=== PATIENT | female | born 1980 | race Hispanic/Latino ===

== ENCOUNTER 2018-05-25 13:39 | Emergency (ER) | payer BC ==
[~2018-05-25] VITALS: Ht 162.6 cm; Wt 59.0 kg
--- OUTSIDE RECORDS SUMMARY | 2018-05-25 13:42 | XMS REPORT | Encounter Summary ---
Author Organization Unknown Address [address] [place] [address] Phone [phone] Reason for Visit Medical Complaint Instructions 1. Cystitis urinalysis, dipstick urinary tract infection in women: care instructions Macrobid 100 mg capsule culture, urine 2. Dysuria painful urination (dysuria): care instructions Pyridium 200 mg tablet 3. Bilirubin in urine - finding Discussion Note Take your antibiotics as directed. Do not stop taking them just because you feel better. You need to take the full course of antibiotics. Drink extra water and other fluids for the next day or two. This may help wash out the bacteria that are causing the infection. (If you have kidney, heart, or liver disease and have to limit fluids, talk with your doctor before you increase your fluid intake.) Avoid drinks that are carbonated or have caffeine. They can irritate the bladder. Urinate often. Try to empty your bladder each time. To relieve pain, take a hot bath or lay a heating pad set on low over your lower belly or genital area. Never go to sleep with a heating pad in place. F/U with PCP Plan of Care Reminders Provider Appointments None recorded. Lab Urinalysis, Dipstick 12/21/2017 [facility] Culture, Urine 12/21/2017 [facility] Referral None recorded. Procedures None recorded. Surgeries None recorded. Imaging None recorded. Medications Name Start Date Lyrica 100 mg capsule Macrobid 100 mg capsule Take 1 capsule every 12 hours by oral route as directed for 7 days. methocarbamol 750 mg tablet naproxen 500 mg tablet Pyridium 200 mg tablet Take 1 tablet 3 times a day by oral route as needed for 2 days. zolmitriptan 5 mg tablet Medications Administered None recorded. Vitals Height Weight BMI Blood Pressure 5 ft 4 in 134 lbs 23 kg/m2 100/68 mm[Hg] Lab Results None recorded. Allergies Code Code System Name Reaction Severity Status Onset NKDA Problems No Known Problems Procedures Date Name Performed by Tubal Ligation Information not available Information not available Breast Augmentation Information not available Vaccine List Vaccine Type influenza, injectable, quadrivalent 03/04/2017 influenza, seasonal, injectable, preservative free 02/18/2013 influenza, unspecified formulation 02/19/2016 Tdap 05/21/2010 Social History Smoking Status Never Smoker Past Encounters 12/21/2017 Cystitis; Dysuria; Bilirubin in Urine - Finding Damaris Wolf PA-C: [address] [place] [address], Ph. History of Present Illness [id number] Reported By: Patient HPI: Location: urethra. Quality: burning. Severity: worsening, moderate. Duration: started today. Onset/Timing: worse, sudden. Context: no known exposure to STD, no prior history of STDs, sexually active. Associated Symptoms: no fever/chills, no flank pain, no jaundice, no pain during urination, no vaginal discharge, no urgency, no blisters on genitals, no rash on genitals, no muscle aches, no headache; burning Review of Systems:ROS as noted in the HPI Review of Systems Basic Reported By: Patient Constitutional: Constitutional: no fever Eyes: Eyes: no eye complaints Yvqj-Amjp-Lputx-Throat: Ears: no ear complaints. Nose: no nose/sinus problems. Mouth/Throat: no sore throat, no bleeding gums, no mouth complaints, no teeth problems Cardiovascular: Cardiovascular: no chest pain, no shortness of breath, no known heart murmur Respiratory: Respiratory: no cough, no wheezing, no shortness of breath Gastrointestinal: Gastrointestinal: no abdominal pain, no vomiting / diarrhea Genitourinary: Genitourinary: no discharge, dysuria, urinary urgency Musculoskeletal: Musculoskeletal: no muscle aches, no muscle weakness, no arthralgias/joint pain, back pain Skin: Skin: no abnormal / changing mole, no jaundice, no rashes Neurologic: Neurologic: no loss of consciousness, no weakness, no numbness, no seizures, no dizziness, no headaches Physical Exam Adult Basic, Adult Female Complete Reported By: Patient Constitutional: General Appearance: healthy-appearing, well-nourished, well-developed. Level of Distress: NAD. Ambulation: ambulating normally Psychiatric: Mental Status: active and alert. Orientation: to time, to place, to person Lungs: Respiratory effort: no dyspnea, no tachypnea, no use of accessory muscles, no intercostal retractions. Auscultation: breath sounds normal Cardiovascular: Heart Auscultation: RRR, no murmurs Abdomen: Bowel Sounds: normal. Inspection and Palpation: soft, non-distended, no guarding, no rebound tenderness, no masses, no CVA tenderness, suprapubic tenderness. Liver: non-tender, no hepatomegaly. Spleen: non-tender, no splenomegaly
--- OUTSIDE RECORDS SUMMARY | 2018-05-25 13:42 | XMS REPORT ---
Author Author [facility] Address Unknown Phone Unavailable Care Team Providers Care Incubator Tender Name Role Phone WILLIAM LOTT Unavailable Unavailable Problems This patient has no known problems. Allergies, Adverse Reactions, Alerts This patient has no known allergies or adverse reactions. Medications This patient has no known medications. Encounters Start Date/Time End Date/Time Encounter Type Admission Type Attending [facility] Care Department Encounter ID 2018-04-15 00:00:00 2018-04-15 00:00:00 [facility]patient [facility] [id number] 2017-07-13 11:00:00 2018-01-27 23:59:00 Outpatient WILLIAM IBANEZ [facility] PT [id number]
--- OUTSIDE RECORDS SUMMARY | 2018-05-25 13:42 | XMS REPORT | Continuity of Care Document ---
Author Author [facility] Address Unknown Phone Unavailable Problems Problem Status Onset Date Classification Date Reported Comments Source Cough 04/30/2018 Diagnosis 04/30/2018 [facility] Sore throat symptom 04/30/2018 Diagnosis 04/30/2018 [facility] Blood in urine 12/21/2017 Diagnosis 12/21/2017 [facility] Proteinuria 12/21/2017 Diagnosis 12/21/2017 [facility] Bilirubin in urine - finding 12/21/2017 Diagnosis 12/21/2017 [facility] Dysuria 12/21/2017 Diagnosis 12/21/2017 [facility] Cystitis 12/21/2017 Diagnosis 12/21/2017 [facility] Allergic rhinitis 08/30/2017 Diagnosis 08/30/2017 [facility] Myofascial pain 07/02/2017 Diagnosis 08/30/2017 [facility] Dysfunction of eustachian tube 07/02/2017 Diagnosis 08/30/2017 [facility] Acute otitis media 07/02/2017 Diagnosis 08/30/2017 [facility] Strain of neck muscle 06/29/2017 Diagnosis 08/30/2017 [facility] Impetigo 04/03/2017 Diagnosis 08/30/2017 [facility] Muscle spasm of cervical muscle of neck 03/19/2017 Diagnosis 08/30/2017 [facility] Body mass index 20-24 - normal 03/19/2017 Diagnosis 08/30/2017 [facility] Neck pain 12/28/2016 Diagnosis 08/30/2017 [facility] Abdominal pain 11/06/2016 Diagnosis 08/30/2017 [facility] Migraine 10/23/2016 Problem 08/30/2017 [facility] Acute tonsillitis 08/25/2016 Diagnosis 08/25/2016 [facility] Ear pressure sensation 08/25/2016 Diagnosis 08/25/2016 [facility] Acute urinary tract infection 02/25/2016 Diagnosis 02/25/2016 [facility] Acute Sinusitis Problem 08/25/2016 [facility] Allergic Rhinitis Problem 08/25/2016 [facility] Acute Urinary Tract Infection Problem 08/25/2016 [facility] Medications Medication Details Route Status Patient Instructions Ordering Provider Order Date Source Amoxicillin 875 MG Oral Tablet amoxicillin 875 mg tablet Active 08/30/2017 [facility] Fluticasone propionate 0.05 MG/ACTUAT Metered Dose Nasal [place] fluticasone 50 mcg/actuation nasal spray,suspension Active 08/30/2017 [facility] 2 ML Ketorolac Tromethamine 30 MG/ML Injection ketorolac 60 mg/2 mL intramuscular solution Inject 2 mL as needed by intramuscular route. Active 08/30/2017 [facility] Lidocaine Hydrochloride 20 MG/ML Mucous Membrane Topical Solution Lidocaine Viscous 2 % mucosal solution Active 08/30/2017 [facility] pregabalin 100 MG Oral Capsule [Lyrica] Lyrica 100 mg capsule Active 08/30/2017 [facility] Methocarbamol 750 MG Oral Tablet methocarbamol 750 mg tablet Active 08/30/2017 [facility] Naproxen 500 MG Oral Tablet naproxen 500 mg tablet Active 08/30/2017 [facility] Oseltamivir 75 MG Oral Capsule oseltamivir 75 mg capsule Active 08/30/2017 [facility] Cephalexin 500 MG Oral Capsule cephalexin 500 mg capsule Active 07/02/2017 [facility] Ibuprofen 800 MG Oral Tablet ibuprofen 800 mg tablet PRN Active 07/02/2017 [facility] Mupirocin 0.02 MG/MG Topical Ointment mupirocin 2 % topical ointment Active 07/02/2017 [facility] pantoprazole 40 MG Delayed Release Oral Tablet pantoprazole 40 mg tablet,delayed release Active 07/02/2017 [facility] Ondansetron 4 MG Oral Tablet ondansetron HCl 4 mg tablet Active 03/19/2017 [facility] tramadol hydrochloride 50 MG Oral Tablet tramadol 50 mg tablet Active 03/19/2017 [facility] norethindrone 1 mg-e. estradiol 20 mcg (24)-iron 75 mg (4) chew tablet norethindrone 1 mg-e. estradiol 20 mcg (24)-iron 75 mg (4) chew tablet Active 12/28/2016 [facility] Azithromycin 250 MG Oral Tablet azithromycin 250 mg tablet Active 10/23/2016 [facility] Ciprofloxacin 250 MG Oral Tablet ciprofloxacin 250 mg tablet Active 10/23/2016 [facility] Dicyclomine Hydrochloride 10 MG Oral Capsule dicyclomine 10 mg capsule Active 10/23/2016 [facility] Phenazopyridine hydrochloride 200 MG Oral Tablet phenazopyridine 200 mg tablet Active 10/23/2016 [facility] Sulfamethoxazole 800 MG / Trimethoprim 160 MG Oral Tablet sulfamethoxazole 800 mg-trimethoprim 160 mg tablet Active 10/23/2016 [facility] Codeine Phosphate 2 MG/ML / Guaifenesin 20 MG/ML Oral Solution Virtussin AC 10 mg-100 mg/5 mL oral liquid Active 10/23/2016 [facility] pregabalin 100 MG Oral Capsule [Lyrica] Lyrica 100 mg capsule Active [facility] NITROFURANTOIN, MACROCRYSTALS 25 MG / Nitrofurantoin, Monohydrate 75 MG Oral Capsule [Macrobid] Macrobid 100 mg capsule Take 1 capsule every 12 hours by oral route as directed for 7 days. Active [facility] Methocarbamol 750 MG Oral Tablet methocarbamol 750 mg tablet Active [facility] Naproxen 500 MG Oral Tablet naproxen 500 mg tablet Active [facility] Phenazopyridine hydrochloride 200 MG Oral Tablet [Pyridium] Pyridium 200 mg tablet Take 1 tablet 3 times a day by oral route as needed for 2 days. Active [facility] zolmitriptan 5 MG Oral Tablet zolmitriptan 5 mg tablet Active [facility] Lidocaine Hydrochloride 20 MG/ML Mucous Membrane Topical Solution Lidocaine Viscous 2 % mucosal solution Take 10 mL every 3 hours by oral route as needed. Active [facility] Minastrin 24 Fe 1 mg-20 mcg (24)/75 mg (4) chewable tablet Minastrin 24 Fe 1 mg-20 mcg (24)/75 mg (4) chewable tablet Active [facility] pantoprazole 40 MG Delayed Release Oral Tablet pantoprazole 40 mg tablet,delayed release TK 1 T PO BID Active [facility] Sulfamethoxazole 800 MG / Trimethoprim 160 MG Oral Tablet [Bactrim] Bactrim DS 800 mg-160 mg tablet Take 1 tablet every 12 hours by oral route as directed for 5 days. Active [facility] Phenazopyridine hydrochloride 200 MG Oral Tablet phenazopyridine 200 mg tablet Take 1 tablet 3 times a day by oral route as needed for urinary pain for 2 days. Active [facility] Brompheniramine Maleate 0.4 MG/ML / Dextromethorphan Hydrobromide 2 MG/ML / Pseudoephedrine Hydrochloride 6 MG/ML Oral Solution [Bromfed DM] Bromfed DM 2 mg-30 mg-10 mg/5 mL syrup Take 10 mL every 4 hours by oral route. Active [facility] Tretinoin 0.25 MG/ML Topical Cream tretinoin 0.025 % topical cream Active [facility] Allergies, Adverse Reactions, Alerts Substance Category Reaction Severity Reaction type Status Date Reported Comments Source Immunizations Immunization Date Given Site Status Last Updated Comments Source Influenza, injectable, MDCK, quadrivalent 03/19/2017 completed [facility] influenza, injectable, quadrivalent 03/04/2017 completed [facility] influenza, unspecified formulation 02/19/2016 completed [facility] influenza, seasonal, injectable, preservative free 02/18/2013 completed [facility] Tdap 05/21/2010 completed [facility] Tdap 05/21/2009 completed [facility] Results Order Name Results Value Reference Range Date Interpretation Comments Source Influenza A negative 04/30/2018 [facility] Influenza B negative 04/30/2018 [facility] RESULT negative 04/30/2018 [facility] SWAB LOCATION Left and Right tonsillar pillars 04/30/2018 [facility] Urinalysis macro (dipstick) panel - Urine COLOR : Yellow 12/21/2017 [facility] Urinalysis macro (dipstick) panel - Urine CLARITY : Cloudy 12/21/2017 [facility] Urinalysis macro (dipstick) panel - Urine LEUKOCYTES : Small 12/21/2017 [facility] Urinalysis macro (dipstick) panel - Urine NITRITES : Negative 12/21/2017 [facility] Urinalysis macro (dipstick) panel - Urine UROBILINOGEN : Normal 12/21/2017 [facility] Urinalysis macro (dipstick) panel - Urine PROTEIN : Trace 12/21/2017 [facility] Urinalysis macro (dipstick) panel - Urine pH : 6.0 12/21/2017 [facility] Urinalysis macro (dipstick) panel - Urine BLOOD : Large 12/21/2017 [facility] Urinalysis macro (dipstick) panel - Urine SPECIFIC GRAVITY : 1.015 12/21/2017 [facility] Urinalysis macro (dipstick) panel - Urine KETONES : Trace 12/21/2017 [facility] Urinalysis macro (dipstick) panel - Urine BILIRUBIN : Small 12/21/2017 [facility] Urinalysis macro (dipstick) panel - Urine GLUCOSE Negative 12/21/2017 [facility] Urinalysis macro (dipstick) panel - Urine COMMENTS : will send for culture 12/21/2017 [facility] RESULT negative 08/25/2016 [facility] SWAB LOCATION Left and Right tonsillar pillars 08/25/2016 [facility] Urinalysis macro (dipstick) panel - Urine COLOR : Juliette 02/25/2016 [facility] Urinalysis macro (dipstick) panel - Urine CLARITY : Cloudy 02/25/2016 [facility] Urinalysis macro (dipstick) panel - Urine LEUKOCYTES : Large 02/25/2016 [facility] Urinalysis macro (dipstick) panel - Urine NITRITES : Negative 02/25/2016 [facility] Urinalysis macro (dipstick) panel - Urine UROBILINOGEN : Normal 02/25/2016 [facility] Urinalysis macro (dipstick) panel - Urine PROTEIN : Negative 02/25/2016 [facility] Urinalysis macro (dipstick) panel - Urine pH : 6.0 02/25/2016 [facility] Urinalysis macro (dipstick) panel - Urine BLOOD : Large 02/25/2016 [facility] Urinalysis macro (dipstick) panel - Urine SPECIFIC GRAVITY : 1.005 02/25/2016 [facility] Urinalysis macro (dipstick) panel - Urine KETONES : Negative 02/25/2016 [facility] Urinalysis macro (dipstick) panel - Urine BILIRUBIN : Negative 02/25/2016 [facility] Urinalysis macro (dipstick) panel - Urine GLUCOSE Negative 02/25/2016 [facility] Urinalysis macro (dipstick) panel - Urine COMMENTS : pt took left over pyridium at home 02/25/2016 [facility] Vital Signs Vital Sign Value Date Comments Source Diastolic (mm Hg) 68 04/30/2018 [facility] Height 64 04/30/2018 [facility] Systolic (mm Hg) 108 04/30/2018 [facility] Weight 130 04/30/2018 [facility] Diastolic (mm Hg) 68 12/21/2017 [facility] Height 64 12/21/2017 [facility] Systolic (mm Hg) 100 12/21/2017 [facility] Weight 134 12/21/2017 [facility] Diastolic (mm Hg) 72 08/30/2017 [facility] Height 64 08/30/2017 [facility] Systolic (mm Hg) 100 08/30/2017 [facility] Weight 132.2 08/30/2017 [facility] Diastolic (mm Hg) 68 07/02/2017 [facility] Height 64 07/02/2017 [facility] Systolic (mm Hg) 106 07/02/2017 [facility] Weight 136 07/02/2017 [facility] Diastolic (mm Hg) 60 06/29/2017 [facility] Height 64 06/29/2017 [facility] Systolic (mm Hg) 100 06/29/2017 [facility] Weight 134.8 06/29/2017 [facility] Diastolic (mm Hg) 68 04/03/2017 [facility] Height 64 04/03/2017 [facility] Systolic (mm Hg) 104 04/03/2017 [facility] Weight 135 04/03/2017 [facility] Diastolic (mm Hg) 80 03/19/2017 [facility] Height 64 03/19/2017 [facility] Systolic (mm Hg) 110 03/19/2017 [facility] Weight 133 03/19/2017 [facility] Diastolic (mm Hg) 60 12/28/2016 [facility] Height 64 12/28/2016 [facility] Systolic (mm Hg) 102 12/28/2016 [facility] Weight 135 12/28/2016 [facility] Diastolic (mm Hg) 62 11/06/2016 [facility] Height 64 11/06/2016 [facility] Systolic (mm Hg) 94 11/06/2016 [facility] Weight 139 11/06/2016 [facility] Diastolic (mm Hg) 66 10/23/2016 [facility] Height 64 10/23/2016 [facility] Systolic (mm Hg) 104 10/23/2016 [facility] Weight 137 10/23/2016 [facility] Diastolic (mm Hg) 60 08/25/2016 [facility] Height 64 08/25/2016 [facility] Systolic (mm Hg) 104 08/25/2016 [facility] Weight 130 08/25/2016 [facility] Diastolic (mm Hg) 60 02/25/2016 [facility] Height 64 02/25/2016 [facility] Systolic (mm Hg) 116 02/25/2016 [facility] Weight 124 02/25/2016 [facility] Encounters Location Location Details Encounter Type Encounter Number Reason For Visit Attending Provider ADM Date DC Date Status Source [place] - [facility] - [id number] Wang MALLET CUTTER: [address] [place] [address], Ph. [id number] Jayne Wang 02/25/2016 [facility] [place] - [facility] - [id number] Elizabeth Ramirez, MALLET CUTTER-C: [address] [place] [address], Ph. [id number] Elizabeth Ramirez 08/25/2016 [facility] PA - [facility] - [place] Dusty Ramires MD: [address] [place] [address], Ph. [id number] Dusty Ramires 10/23/2016 [facility] - [place] Catalino Freeman MD: [address] [place] [address], Ph. [id number] Catalino Freeman 11/06/2016 [facility] - [facility] - [place] Catalino Freeman MD: [address] [place] [address], Ph. [id number] Catalino Freeman 12/28/2016 [facility] - [place] Dustyjeff Ramires MD: [address] [place] [address], Ph. [id number] Dusty Ramires 03/19/2017 [facility] - [facility] - [facility] Criss Ramires MD: [address] [place] [address], Ph. [id number] [facility] Kahn Ike 04/03/2017 [facility] PA - [facility] - [facility] Yina Villa MD: [address], [facility] [address] [place] [address], Ph. [id number] Yina Villa 06/29/2017 [facility] PA - [facility] - [facility] Criss Ramires MD: [address] [place] [address], Ph. [id number] [facility] Ramires 07/02/2017 [facility] - [facility] Yina Villa MD: [address], [facility] [address] [address], Ph. [id number] Yina Villa 08/30/2017 [facility] [place] - [facility] - [id number] JULES MontelongoC: [address] [place] [address], Ph. [id number] Damaris Wolf 12/21/2017 [facility] [place] - [facility] - [id number] JULES MontelongoC: [address] [place] [address], Ph. [id number] Damaris Wolf 12/21/2017 [facility] [place] - [facility] - [id number] Yoeljeremiah Jayleen, [facility]-C: [address] [place] [address], Ph. [id number] Yolandawillieramonajeremiah Clemens 04/30/2018 [facility] Procedures Procedure Code Date Perfomer Comments Source US, breast 07/28/2017 [facility] MAMMO, diagnostic, digital, bilateral 07/28/2017 [facility] MAMMO, screening, digital, bilateral 07/02/2017 [facility] US, ABDOMINAL COMPLETE [id number] 11/06/2016 [facility] Breast Surgery 05/21/2015 [facility] Breast Surgery Procedure [id number] 05/21/2015 [facility] Colonoscopy 02/23/2015 [facility] Caesarean Section 05/21/2006 [facility] Delivery [id number] 05/21/2006 [facility] Caesarean Section 05/21/2004 [facility] Delivery [id number] 05/21/2004 [facility] Tubal Ligation [facility] Breast Augmentation [facility]
--- OUTSIDE RECORDS SUMMARY | 2018-05-25 13:42 | XMS REPORT | Encounter Summary ---
Author Organization Unknown Address [address] [place] [address] Phone [phone] Reason for Visit Medical Complaint Instructions 1. Cystitis urinalysis, dipstick urinary tract infection in women: care instructions Macrobid 100 mg capsule culture, urine 2. Dysuria painful urination (dysuria): care instructions Pyridium 200 mg tablet 3. Bilirubin in urine - finding 4. Proteinuria proteinuria: care instructions 5. Blood in urine blood in the urine: care instructions Discussion Note Take your antibiotics as directed. [...] Appointments None recorded. Lab Urinalysis, Dipstick 12/21/2017 [facility] Culture, Urine 12/21/2017 [facility] Referral None [...] lbs 23 kg/m2 100/68 mm[Hg] Lab Results Date Name Specimen Result Interpretation Description Value Range Status Address 12/21/2017 Urinalysis, Dipstick Color : Yellow [facility]: [facility] Clarity : Cloudy [facility]: [address] [place] [address] Leukocytes : Small [facility]: [address] [place] [address] Nitrites : Negative [facility]: [address] [place] [address] Urobilinogen : Normal [facility]: [address] [place] [address] Protein : Trace [facility]: [address] [place] [address] Ph : 6.0 [facility]: [address] [place] [address] Blood : Large [facility]: [address] [place] [address] Specific [place] : 1.015 [facility]: [address] [place] [address] Ketones : Trace [facility]: [address] [place] [address] Bilirubin : Small [facility]: [address] [place] [address] Glucose Negative [facility]: [address] [place] [address] Comments : will send for culture [facility]: [address] [place] [address] Allergies Code Code System Name Reaction Severity [...] 12/21/2017 Cystitis; Dysuria; Bilirubin in Urine - Finding; Proteinuria; Blood in Urine Damaris Wolf PA-C: [address] [place] [address], Ph. History of Present Illness [id number] Reported By: Patient HPI: Location: urethra. Quality: [...] no fever Eyes: Eyes: no eye complaints Rthl-Jzde-Nlrhh-Throat: Ears: no ear complaints. Nose: no nose/sinus [...]
--- OUTSIDE RECORDS SUMMARY | 2018-05-25 13:42 | XMS REPORT | Encounter Summary ---
Author Organization Unknown Address [address] [place] [address] Phone [phone] Reason for Visit Medical Complaint Instructions 1. Acute tonsillitis tonsillitis: care instructions Lidocaine Viscous 2 % mucosal solution rapid strep group A, throat 2. Ear pressure sensation Discussion Note Pt is in NAD; Verbalizes understanding of all instructions with no questions at this time. Plan of Care Patient Instructions Alternate with Ibuprofen and acetaminophen every 4hrs as needed for pain/fever Proper hydration and rest. Take fluticasone as needed for congestion and aid with ear pressure. [place] one spray in each nostril twice a day. Take a warm, steamy shower, blow your nose thereafter, and spray in each nostril. Tilt your head up for about 10 seconds and breath through your mouth. Do not sniff or snort the medication in or else the medication will go to your throat and not be absorbed appropriately. Gargle and spit viscous lidocaine as needed for sore throat as directed. Take medications as prescribed. Return to clinic or follow up with your PCP within 2-3 days if symptoms worsen as discussed. Reminders Provider Appointments None recorded. Lab Rapid Strep Group a, Throat 08/25/2016 [facility] Referral None recorded. Procedures None recorded. Surgeries None recorded. Imaging None recorded. Medications Name Start Date Lidocaine Viscous 2 % mucosal solution Take 10 mL every 3 hours by oral route as needed. Minastrin 24 Fe 1 mg-20 mcg (24)/75 mg (4) chewable tablet pantoprazole 40 mg tablet,delayed release TK 1 T PO BID Medications Administered None recorded. Vitals Height Weight BMI Blood Pressure 5 ft 4 in 130 lbs 22.3 104/60 Lab Results Date Name Specimen Result Interpretation Description Value Range Status Address Rapid Strep Group a, Throat Result negative [facility]: [address] [place] [address] Swab Location Left and Right tonsillar pillars [facility]: [address] [place] [address] Allergies Code Code System Name Reaction Severity Onset NKDA Problems Name Status Onset Date Source Acute Sinusitis Active Encounter Allergic Rhinitis Active Encounter Acute Urinary Tract Infection Active Encounter Procedures None recorded. 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 History of Present Illness Throat-Oral Complaint Reported By: Patient HPI: Location: throat. Quality: sore throat; ear pressure. Severity: moderate. Duration: 2 days. Context: no foreign travel, non-smoker, sick contact. Associated Symptoms: no sputum production, no shortness of breath, no wheezing, no change in number of pillows needed to sleep at night, no sweats, no significant weight gain, no significant weight loss, no morning cough, no vomiting, no diarrhea, no rash, no nausea, sore throat; B/L ear pressure Review of Systems:ROS as noted in the HPI Review of Systems Basic Reported By: Patient Physical Exam Adult Basic, 14-21 Yr Male, Adult Female Complete Reported By: Patient Constitutional: General Appearance: healthy-appearing, well-nourished, well-developed. Level of Distress: NAD. Ambulation: ambulating normally Psychiatric: Mental Status: active and alert. Orientation: to time, to place, to person Lhy-Oxav-Lyjsh-Throat: Ears: no lesions on external ear, no outer ear tenderness, EACs clear, TMs clear, TM mobility normal. Hearing: no hearing loss. Nose: no lesions on external nose, nares patent, no septal deviation, nasal passages clear, no sinus tenderness, no nasal discharge. Lips, Teeth, and Gums: no mouth or lip ulcers, no bleeding gums, normal dentition. Oropharynx: moist mucous membranes, no exudates, erythema, tonsils enlarged 2+ Neck: Lymph Nodes: no supraclavicular LAD, anterior cervical LAD Lungs: Respiratory effort: no dyspnea, no tachypnea, no use of accessory muscles, no intercostal retractions. Auscultation: breath sounds normal Cardiovascular: Heart Auscultation: RRR, no murmurs Neurologic: Gait and Station: normal gait, normal station
--- OUTSIDE RECORDS SUMMARY | 2018-05-25 13:42 | XMS REPORT | Encounter Summary ---
Author Organization Unknown Address [address] [place] [address] Phone [phone] Reason for Visit Medical Complaint Instructions 1. Sore throat symptom sore throat: care instructions Lidocaine Viscous 2 % mucosal solution rapid strep group A, throat culture, respiratory 2. Cough cough: care instructions Bromfed DM 2 mg-30 mg-10 mg/5 mL syrup rapid flu (A+B) Discussion Note: None recorded. Plan of Care Patient Instructions Bronchitis is inflammation of the bronchial tubes, which carry air to the lungs. The tubes swell and produce mucus, or phlegm. The mucus and inflamed bronchial tubes make you cough. You may have trouble breathing. Most cases of bronchitis are caused by viruses like those that cause colds. Antibiotics usually do not help and they may be harmful. Bronchitis usually develops rapidly and lasts about 2 to 3 weeks in otherwise healthy people. Follow-up care is a maxwell part of your treatment and safety. Be sure to make and go to all appointments, and call your doctor if you are having problems. It's also a good idea to know your test results and keep a list of the medicines you take. How can you care for yourself at home? Take all medicines exactly as prescribed. Call your doctor if you think you are having a problem with your medicine. Get some extra rest. Take an fszq-xpi-aglbydp pain medicine, such as acetaminophen (Tylenol), ibuprofen (Advil, Motrin), or naproxen (Aleve) to reduce fever and relieve body aches. Read and follow all instructions on the label. Do not take two or more pain medicines at the same time unless the doctor told you to. Many pain medicines have acetaminophen, which is Tylenol. Too much acetaminophen (Tylenol) can be harmful. Take an mprk-ybx-ubmfsxn cough medicine that contains dextromethorphan to help quiet a dry, hacking cough so that you can sleep. Avoid cough medicines that have more than one active ingredient. Read and follow all instructions on the label. Breathe moist air from a humidifier, hot shower, or sink filled with hot water. The heat and moisture will thin mucus so you can cough it out. Do not smoke. Smoking can make bronchitis worse. If you need help quitting, talk to your doctor about stop-smoking programs and medicines. These can increase your chances of quitting for good. When should you call for help? Call 911 anytime you think you may need emergency care. For example, call if: You have severe trouble breathing. Call your doctor now or seek immediate medical care if: You have new or worse trouble breathing. You cough up dark brown or bloody mucus (sputum). You have a new or higher fever. You have a new rash. Watch closely for changes in your health, and be sure to contact your doctor if: You cough more deeply or more often, especially if you notice more mucus or a change in the color of your mucus. You are not getting better as expected. Reminders Provider Appointments None recorded. Lab Rapid Strep Group a, Throat 04/30/2018 [facility] Culture, Respiratory 04/30/2018 [facility] Rapid Flu (A+B) 04/30/2018 [facility] Referral None recorded. Procedures None recorded. Surgeries None recorded. Imaging None recorded. Medications Name Start Date Bromfed DM 2 mg-30 mg-10 mg/5 mL syrup Take 10 mL every 4 hours by oral route. Lidocaine Viscous 2 % mucosal solution Take 10 mL every 3 hours by oral route as needed. tretinoin 0.025 % topical cream zolmitriptan 5 mg tablet Medications Administered None recorded. Vitals Height Weight BMI Blood Pressure 5 ft 4 in 130 lbs 22.3 kg/m2 108/68 mm[Hg] Lab Results Date Name Specimen Result Interpretation Description Value Range Status Address Rapid Flu (A+B) Influenza a negative [facility]: [address] [place] [address] Influenza B negative [facility]: [address] [place] [address] Rapid Strep Group a, Throat Result negative [facility]: [address] [place] [address] Swab Location Left and Right tonsillar pillars [facility]: [address] [place] [address] Allergies Code Code System Name Reaction Severity Status Onset NKDA Problems No Known Problems Procedures Date Name Performed by Tubal Ligation Information not available Information not available Breast Augmentation Information not available Vaccine List Vaccine Type influenza, injectable, quadrivalent 03/04/2017 influenza, seasonal, injectable, preservative free 02/18/2013 influenza, unspecified formulation 02/19/2016 Tdap 05/21/2010 Social History Smoking Status Never Smoker Past Encounters 04/30/2018 Sore Throat Symptom; 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 History of Present Illness Ygcuz-Cxdiesicly-Grlxlil Reported By: Patient HPI: Location: head/sinuses, throat. Quality: sore throat, dry cough. Duration: 3days. Severity: moderate. Onset/Timing: gradual. Context: no sick contacts, no foreign travel, non-smoker, allergies. Associated Symptoms: no sputum production, no shortness of breath, no wheezing, no change in number of pillows needed to sleep at night, no sweats, no significant weight gain, no significant weight loss, no morning cough, no vomiting, no diarrhea, no rash, no nausea, no fever, no muscle aches, no headache, sore throat Review of Systems:ROS as noted in the HPI Review of Systems Basic Reported By: Patient Physical Exam Adult Basic, Adult Female Complete Reported By: Patient Constitutional: General Appearance: healthy-appearing, well-nourished, well-developed. Level of Distress: NAD. Ambulation: ambulating normally Psychiatric: Mental Status: active and alert. Orientation: to time, to place, to person Pqv-Psml-Qtobf-Throat: Ears: no lesions on external ear, no outer ear tenderness, EACs clear, TMs clear. Hearing: no hearing loss. Nose: no lesions on external nose, nares patent, no septal deviation, nasal passages clear, no sinus tenderness, no nasal discharge. Lips, Teeth, and Gums: no mouth or lip ulcers, no bleeding gums, normal dentition. Oropharynx: moist mucous membranes, no erythema, no exudates, tonsils not enlarged Lungs: Respiratory effort: no dyspnea, no tachypnea, no use of accessory muscles, no intercostal retractions. Auscultation: breath sounds normal Cardiovascular: Heart Auscultation: RRR, no murmurs
--- OUTSIDE RECORDS SUMMARY | 2018-05-25 13:42 | XMS REPORT ---
Author Organization Unknown Address [address] [place] [address] Phone [phone] Care Team Providers Care Ethnology Teacher Name Role Phone MANUEL SMITH MD 110 [phone] SANTANA GARCIA MD FAC 107 [phone] Allergies Code Code System Name Reaction Severity Status Onset NKDA Medications Name Status Start Date Stop Date amoxicillin 875 mg tablet Completed 08/30/2017 azithromycin 250 mg tablet Completed 10/23/2016 cephalexin 500 mg capsule Completed 07/02/2017 ciprofloxacin 250 mg tablet Completed 10/23/2016 dicyclomine 10 mg capsule Completed 10/23/2016 fluticasone 50 mcg/actuation nasal spray,suspension Completed 08/30/2017 ibuprofen 800 mg tablet PRN Completed 07/02/2017 ketorolac 60 mg/2 mL intramuscular solution Inject 2 mL as needed by intramuscular route. Completed 08/30/2017 Lidocaine Viscous 2 % mucosal solution Completed 08/30/2017 Lyrica 100 mg capsule Completed 08/30/2017 methocarbamol 750 mg tablet Completed 08/30/2017 mupirocin 2 % topical ointment Completed 07/02/2017 naproxen 500 mg tablet Completed 08/30/2017 norethindrone 1 mg-e. estradiol 20 mcg (24)-iron 75 mg (4) chew tablet Completed 12/28/2016 ondansetron HCl 4 mg tablet Completed 03/19/2017 oseltamivir 75 mg capsule Completed 08/30/2017 pantoprazole 40 mg tablet,delayed release Completed 07/02/2017 phenazopyridine 200 mg tablet Completed 10/23/2016 sulfamethoxazole 800 mg-trimethoprim 160 mg tablet Completed 10/23/2016 tramadol 50 mg tablet Completed 03/19/2017 Virtussin AC 10 mg-100 mg/5 mL oral liquid Completed 10/23/2016 zolmitriptan 5 mg tablet Active Not available Problems Name Status Onset Date Source Migraine Active 10/23/2016 Procedures Date Name Performed by 05/21/2015 Breast Surgery Information not available 05/21/2015 Breast Surgery Procedure Information not available 02/23/2015 Colonoscopy Information not available 05/21/2006 Caesarean Section Information not available 05/21/2006 Delivery Information not available 05/21/2004 Caesarean Section Information not available 05/21/2004 Delivery Information not available 11/06/2016 US, Abdomen [facility] [address] [place], [place] [id number] (Work Place) 07/02/2017 MAMMO, Screening, Digital, Bilateral [facility] [address] [place] [address] (Work Place) 07/28/2017 US, Breast [facility] [address] [place] [address] (Work Place) 07/28/2017 MAMMO, Diagnostic, Digital, Bilateral [facility] [address] [place] [address] (Work Place) Lab Results None recorded. Past Encounters 08/30/2017 Allergic Rhinitis Yina Villa MD: [address] [place], [address] [address], Ph. 07/02/2017 Acute Otitis Media; Dysfunction of Eustachian Tube; Myofascial Pain Dusty Ramires MD: [facility] [place] [address], Ph. 06/29/2017 Strain of Neck Muscle Yina Villa MD: [address] [place], [facility] [address] [place] [address], Ph. 04/03/2017 Impetigo; Body Mass Index 20-24 - Normal Dusty Ramires MD: [address] [place] [address], Ph. 03/19/2017 Muscle Spasm of Cervical Muscle of Neck; Body Mass Index 20-24 - Normal; Influenza Vaccination Dusty Ramires MD: [address] [place] [address], Ph. 12/28/2016 Neck Pain Catalino Freeman MD: [address] [place] [address], Ph. 11/06/2016 Abdominal Pain Catalino Freeman MD: [address] [place] [address], Ph. 10/23/2016 Migraine Dustybrayden Ramires MD: [address] [place] [address], Ph. Social History Smoking Status Never Smoker Vaccine List Vaccine Type Influenza, injectable, MDCK, quadrivalent 03/19/20170.5 mL Tdap 05/21/2009 Plan of Care Patient Instructions increase oral fluid intake, hand washing, warm salt water gargles continue zyrtec daily for allergy symptoms gargle 2 teaspoons liquid benadryl for inflammation/irritation up to 3x daily as needed Take over the counter Sudafed PE per package directions for nasal congestion as needed Take over the counter Mucinex DM per package directions for cough as needed Take over the counter Tylenol/acetaminophen 650mg up to 4x daily - alternate it with Motrin/ibuprofen 600mg up to 4x daily for fever/pain call/email if you are not feeling better within the next 1-2 weeks torodol injection today start previously prescribed muscle relaxant tonight start previously prescribed naproxen tomorrow morning heating pad, stretching, avoid heavy lifting call/email if you are not feeling better within the next 2 weeks local heat clear liquids only until result u/s,tylenol prn Reminders Provider Appointments None recorded. Lab None recorded. Referral None recorded. Procedures None recorded. Surgeries None recorded. Imaging None recorded. Vitals 08/30/2017 01:30PM Est Patient Height Weight BMI Blood Pressure 5 ft 4 in 132.2 lbs 22.7 kg/m2 100/72 mm[Hg] 07/02/2017 04:15PM Est Patient Height Weight BMI Blood Pressure 5 ft 4 in 136 lbs 23.3 kg/m2 106/68 mm[Hg] 06/29/2017 09:45AM Work In Same Day Height Weight BMI Blood Pressure 5 ft 4 in 134.8 lbs 23.1 kg/m2 100/60 mm[Hg] 04/03/2017 03:45PM Work In Same Day Height Weight BMI Blood Pressure 5 ft 4 in 135 lbs 23.2 kg/m2 104/68 mm[Hg] 03/19/2017 03:30PM Est Patient Height Weight BMI Blood Pressure 5 ft 4 in 133 lbs 22.8 kg/m2 110/80 mm[Hg] 12/28/2016 04:30PM Work In Same Day Height Weight BMI Blood Pressure 5 ft 4 in 135 lbs 23.2 kg/m2 102/60 mm[Hg] 11/06/2016 03:45PM Work In Same Day Height Weight BMI Blood Pressure 5 ft 4 in 139 lbs 23.9 kg/m2 94/62 mm[Hg] 10/23/2016 10:15AM Work In Same Day Height Weight BMI Blood Pressure 5 ft 4 in 137 lbs 23.5 kg/m2 104/66 mm[Hg]
--- OUTSIDE RECORDS SUMMARY | 2018-05-25 13:42 | XMS REPORT | Encounter Summary ---
Author Organization Unknown Address [address] [place] [address] Phone [phone] Reason for Visit Medical Complaint; uti x 1 day Instructions 1. Acute urinary tract infection Bactrim DS 800 mg-160 mg tablet phenazopyridine 200 mg tablet urinalysis, dipstick culture, urine Discussion Note: None recorded. Patient educational handouts: No information available. Plan of Care Patient Instructions Increase fluid intake. Take med as prescribed.If started to have yeast infection while on antibiotic, may call clinic for diflucan. Wipe front to back and urinate after sexual intercouse.Wear loose cotton underwear. May take cranberry juice for preventative. If symptoms worsen follow with severe back pain, chills, fever, abdominal pain call clinic. Reminders Provider Appointments None recorded. Lab Urinalysis, Dipstick 02/25/2016 [facility] Culture, Urine 02/25/2016 [facility] Referral None recorded. Procedures None recorded. Surgeries None recorded. Imaging None recorded. Medications Name Start Date Bactrim DS 800 mg-160 mg tablet Take 1 tablet every 12 hours by oral route as directed for 5 days. Minastrin 24 Fe 1 mg-20 mcg (24)/75 mg (4) chewable tablet pantoprazole 40 mg tablet,delayed release phenazopyridine 200 mg tablet Take 1 tablet 3 times a day by oral route as needed for urinary pain for 2 days. Medications Administered None recorded. Vitals Height Weight BMI Blood Pressure 5 ft 4 in 124 lbs 21.3 116/60 Lab Results Date Name Result Description Value Range Status Urinalysis, Dipstick Color : Juliette Clarity : Cloudy Leukocytes : Large Nitrites : Negative Urobilinogen : Normal Protein : Negative Ph : 6.0 Blood : Large Specific Fate : 1.005 Ketones : Negative Bilirubin : Negative Glucose Negative Comments : pt took left over pyridium at home Allergies Name Reaction Severity Onset NKDA Problems Name Status Onset Date Source Acute Sinusitis Active Encounter Allergic Rhinitis Active Encounter Acute Urinary Tract Infection Active Encounter Procedures None recorded. Vaccine List Vaccine Type influenza, seasonal, injectable, preservative free 02/17/2013 Tdap 05/20/2010 Social History Smoking Status Never Smoker Past Encounters 02/25/2016 Acute Urinary Tract Infection Jayne Wang, [facility]: [address] [place] [address], Ph. History of Present Illness Uleqlm-DNQ-Visuuow Reported By: Patient HPI: Location: urethra. Quality: burning. Severity: worsening. Duration: started 1. Onset/Timing: worse. Context: no known exposure to STD, no prior history of STDs, sexually active, heterosexual. Modifying factors ; left over pyridium. Associated Symptoms: no fever/chills, no flank pain, no jaundice, no blood in the urine, no pain during urination, no vaginal discharge, no blisters on genitals, no rash on genitals, burning sensation during urination, urgency Review of Systems Basic Reported By: Patient Constitutional: Constitutional: no fever Eyes: Eyes: no eye complaints Udar-Tuze-Gxyyd-Throat: Ears: no ear complaints. Nose: no nose/sinus [...] aches, no muscle weakness, no arthralgias/joint pain, no back pain Skin: Skin: no abnormal / changing mole, no jaundice, no rashes Neurologic: Neurologic: no loss of consciousness, no weakness, no numbness, no seizures, no dizziness, no headaches Physical Exam Adult Basic, Adult Female Complete Constitutional: General Appearance: healthy-appearing, well-nourished, well-developed. Level of Distress: NAD. Ambulation: ambulating normally Psychiatric: Mental Status: active and alert. Orientation: to time, to place, to person Eyes: Lids and Conjunctivae: non-injected, no discharge, no pallor. Pupils: PERRLA. Corneas: grossly intact. EOM: EOMI. Lens: clear. Sclerae: non-icteric. Vision: acuity grossly intact Ots-Izij-Betpr-Throat: Ears: no lesions on external ear, no outer ear tenderness, EACs clear, TMs clear. Hearing: no hearing loss. Nose: no lesions on external nose, nares patent, no septal deviation, nasal passages clear, no sinus tenderness, no nasal discharge. Lips, Teeth, and Gums: no mouth or lip ulcers, no bleeding gums, normal dentition. Oropharynx: moist mucous membranes, no erythema, no exudates, tonsils not enlarged Neck: Neck: supple, trachea midline, no masses, FROM. Lymph Nodes: no cervical LAD, no supraclavicular LAD. Thyroid: no enlargement, non-tender, no nodules Lungs: Respiratory effort: no dyspnea, no tachypnea, no use of accessory muscles, no intercostal retractions. Auscultation: breath sounds normal Cardiovascular: Heart Auscultation: RRR, no murmurs. Neck vessels: no carotid bruits Abdomen: Bowel Sounds: normal. Inspection and Palpation: soft, non-distended, no guarding, no rebound tenderness, no masses, no CVA tenderness, suprapubic tenderness. Liver: non-tender, no hepatomegaly. Spleen: non-tender, no splenomegaly. Hernia: none palpable
== END 2018-05-25 14:00 | disposition home or self-care (01) ==
LOC: ER 13:39
DX: H92.02 Otalgia, left ear (principal); H93.12 Tinnitus, left ear
CPT/HCPCS: 99282